=== PATIENT | male | born 1945 | race African-American/Black ===

== ENCOUNTER → 2019-02-25 | Outpatient (CLI) | payer OTHER ==
[~2019-02-25] MED LIST: ACET-1600 PO; AIRBORNE IMMUNE PO; FERR324T5 PO; IBUP-11 PO; [UNRECOGNIZED DRUG - REMARK] PO; [UNRECOGNIZED DRUG - SUPPLY] TP
[2019-02-25 11:23] LABS: MEAN CORPUSCULAR HEMOGLOBIN 28.7 pg (27.5-34.5); MEAN CORPUSCULAR HGB CONC 31.9 g/dL (33.2-36.2); MEAN CORPUSCULAR VOLUME 89.8 fL (81-97); MEAN PLATELET VOLUME 8.7 fL (7.4-10.4); PLATELET COUNT 258 x10^3/uL (130-400); RED CELL DISTRIBUTION WIDTH 16.1 % (9.4-14.8)
[2019-02-25 11:25] LABS: INTERNATIONAL NORMALIZED RATIO 0.98 (0.93-1.1); PROTHROMBIN TIME 10.4 Seconds (9.6-11.5)
[2019-02-25 11:27] LABS: ALANINE AMINOTRANSFERASE 39 U/L (12-78); ALBUMIN 3.3 g/dL (3.4-5.0); ANION GAP 5 mmol/L (5-15); CHLORIDE 108 mmol/L (98-107)
[2019-02-25 11:29] LABS: ALKALINE PHOSPHATASE 102 U/L (45-117); BILIRUBIN,TOTAL 0.5 mg/dL (0.2-1.0); CREATININE 1.41 mg/dL (0.7-1.3); TOTAL PROTEIN 7.3 g/dL (6.4-8.2)
[2019-02-25 11:43] LABS: BASOPHILS # (AUTO) 0.11 x10^3/uL (0-0.1); BASOPHILS % (AUTO) 2 % (0-1); EOSINOPHILS # (AUTO) 0.46 x10^3/uL (0-0.4); EOSINOPHILS % (AUTO) 8 % (1-7); LYMPHOCYTES % (AUTO) 17 % (22-44); MD MORPH REVIEW ONLY; MONOCYTES # (AUTO) 0.56 x10^3/uL (0.2-0.8); MONOCYTES % (AUTO) 10 % (2-9); NEUTROPHILS # (AUTO) 3.64 x10^3/uL (1.8-6.8); NEUTROPHILS % (AUTO) 63 % (42-75)
[2019-02-25 11:50] LABS: ANISOCYTOSIS 1+; OVALOCYTES 2+; SCHISTOCYTES 1+
[2019-02-25 11:51] LABS: <PLATELET ESTIMATE> ADEQUATE; <PLT MORPHOLOGY> NORMAL PLT MORPH
== END | disposition home or self-care (01) ==
LOC: STAR 09:46
PROVIDERS: ATTEND Orthopaedic Surgery
DX: Z01.818 Encounter for other preprocedural examination (principal); M16.12 Unilateral primary osteoarthritis, left hip; Z79.899 Other long term (current) drug therapy
CPT/HCPCS: 36415; 80053; 83036; 85025; 85610; 85730; 87081; 93005

== ENCOUNTER 2019-03-03 09:50 | Inpatient (IN) | payer OTHER ==
[~2019-03-03] VITALS: Ht 167.6 cm; Wt 53.3 kg
[2019-03-03] MEDS ORDERED: ACETAMINOPHEN 500 MG TABLET PO STA ×2 (11:48→12:08)
[2019-03-03] MEDS ORDERED: GABAPENTIN 300 MG CAPSULE PO STA ×2 (11:48→12:08)
[2019-03-03] MEDS ORDERED: LACTATED RINGERS 1,000 ML IV SCH (11:52)
[2019-03-03] MEDS ORDERED: ROCURONIUM 10 MG/ML,10ML ONE (13:20)
[2019-03-03] MEDS ORDERED: NEOSTIGMINE 1 MG/ML, 10ML ONE (13:20)
[2019-03-03] MEDS ORDERED: CEFAZOLIN 1,000 MG ONE (13:20)
[2019-03-03] MEDS ORDERED: GLYCOPYRROLATE 0.2MG/1ML, 5ML ONE (13:20)
[2019-03-03] MEDS ORDERED: PROPOFOL 10 MG/ML, 20ML ONE (13:20)
[2019-03-03] MEDS ORDERED: ONDANSETRON 4 MG TABLET PO PRN (13:30)
[2019-03-03] MEDS ORDERED: HYDROmorphone 2 MG/ML, 1ML IVPush PRN (13:30)
[2019-03-03] MEDS ORDERED: LABETALOL 5MG/ML, 20ML IV PRN (13:30)
[2019-03-03] MEDS ORDERED: DIPHENHYDRAMINE 25 MG CAPSULE PO PRN (13:30)
[2019-03-03] MEDS ORDERED: MORPHINE SULFATE 4 MG/ML, 1ML IVPush PRN (13:30)
[2019-03-03] MEDS ORDERED: MEPERIDINE/PF 25MG/ML,1ML IVPush PRN (13:30)
[2019-03-03] MEDS ORDERED: BISACODYL 10 MG SUPP PR PRN (13:30)
[2019-03-03] MEDS ORDERED: FENTANYL PF 100 MCG/2ML IV PRN (13:30)
[2019-03-03] MEDS ORDERED: MAGNESIUM HYDROXIDE 8%, 30ML UDC PO PRN (13:30)
[2019-03-03] MEDS ORDERED: ONDANSETRON 2MG/ML, 2ML IV PRN ×2 (13:30)
[2019-03-03] MEDS ORDERED: OXYcodone IR 5MG TABLET PO PRN (13:30)
[2019-03-03] MEDS ORDERED: ACETAMINOPHEN 650 MG/20.3 ML UDC PO PRN (13:30)
[2019-03-03] MEDS ORDERED: SENNA/DOCUSATE TABLET PO PRN (13:30)
[2019-03-03] MEDS ORDERED: ZOLPIDEM 5MG TABLET PO PRN (13:30)
[2019-03-03] MEDS ORDERED: SCOPOLAMINE PATCH, 1.5MG PATCH.TD72 TD ONE (13:30)
[2019-03-03] MEDS ORDERED: OXYcodone 5 MG/5 ML ORAL.SOL UDC PO PRN (13:30)
[2019-03-03] MEDS ORDERED: FENTANYL PF 250 MCG/5ML ONE (13:45)
[2019-03-03] MEDS ORDERED: TRANEXAMIC ACID 100 MG/ML, 10ML ONE ×2 (14:43)
[2019-03-03] MEDS ORDERED: EPINEPHRINE 1 MG/ML, 1ML ONE (14:44)
[2019-03-03] MEDS ORDERED: ROPIvacaine/PF 0.5%, 30 ML ONE (14:44)
[2019-03-03] MEDS ORDERED: ROPIvacaine/PF 0.5%, 20 ML ONE (14:44)
[2019-03-03] MEDS ORDERED: SODIUM CHLORIDE 0.9% 50 ML ONE (14:44)
[2019-03-03] MEDS ORDERED: VANCOMYCIN 1,000 MG ONE (14:44)
[2019-03-03] MEDS ORDERED: hydrALAzine 20 MG/ML, 1ML ONE (14:59)
[2019-03-03] MEDS: hydrALAzine 20 MG/ML, 1ML IV PRN ×2 (15:03→15:27)
[2019-03-03] MEDS ORDERED: HYDROmorphone 1 MG/ML, 1ML INJ ONE (15:25)
[2019-03-03] MEDS ORDERED: LABETALOL 5MG/ML, 20ML ONE (15:45)
[2019-03-03 16:58] VITALS: BP 163/66
[2019-03-03] MEDS: ASPIRIN 81 MG TABLET EC PO SCH (17:58)
[2019-03-03] MEDS: NS + 20MEQ KCL 1,000 ML IV SCH (17:59)
[2019-03-03 19:42] VITALS: BP 132/81
[2019-03-03] MEDS: CEFAZOLIN PMX 2GM/50ML 50 ML IVPB SCH (20:41)
[2019-03-03] MEDS: DOCUSATE 100 MG CAPSULE PO SCH (20:41)
[2019-03-04 00:34] VITALS: BP 103/57
[2019-03-04 04:05] VITALS: BP 141/69
[2019-03-04] MEDS: CEFAZOLIN PMX 2GM/50ML 50 ML IVPB SCH (05:54)
[2019-03-04] MEDS: HYDROcodone/APAP 5/325 TABLET PO PRN ×2 (05:56→15:02)
[2019-03-04] MEDS: ASPIRIN 81 MG TABLET EC PO SCH (05:56)
[2019-03-04] MEDS ORDERED: DEXAMETHASONE 4 MG/ML, 1ML IVPush SCH (06:00)
[2019-03-04] MEDS: NS + 20MEQ KCL 1,000 ML IV SCH ×2 (06:30→08:13)
[2019-03-04 07:35] VITALS: BP 147/71
[2019-03-04] MEDS: DOCUSATE 100 MG CAPSULE PO SCH (08:13)
[2019-03-04] MEDS ORDERED: TAMSULOSIN 0.4 MG CAP.ER.24H PO SCH (09:00)
== END 2019-03-04 15:40 | disposition home or self-care (01) | DRG 470 ==
LOC: ORIP 11:36 → 4NE 16:38 → DCLOUNGE 03-04 15:28
PROVIDERS: ADMIT Orthopaedic Surgery; ATTEND Orthopaedic Surgery
PROC: 0SRB06A Replacement of Left Hip Joint with Oxidized Zirconium on Polyethylene Synthetic Substitute, Uncemented, Open Approach (ICD-10-PCS; principal; 2019-03-03 13:30)
DX: M16.12 Unilateral primary osteoarthritis, left hip (principal); M87.9 Osteonecrosis, unspecified; R33.9 Retention of urine, unspecified
CPT/HCPCS: 36415; 72170; 76000; 85014; 85018; C1713; G0378; J0171; J0690; J1100; J1170; J2405; J2704; J2710; J2795; J3010; J3370; J3480; C1776; J0360; J7120